=== PATIENT | male | born 1980 | race Caucasian/White ===

== ENCOUNTER 2023-06-05 21:53 | Inpatient (IN) | payer OTHER ==
[2023-06-05 22:47] VITALS: BMI 24.3
[2023-06-06] MEDS ORDERED: LOPERAMIDE HCL 2 MG CAPSULE PO PRN (03:06)
[2023-06-06] MEDS ORDERED: BISMUTH SUBSALICYLATE 524 MG/30 ML PO PRN (03:06)
[2023-06-06] MEDS ORDERED: MAGNESIUM HYDROX 2400MG/30ML ORAL SUSPENSION 30 ML CUP PO PRN (03:06)
[2023-06-06] MEDS ORDERED: POLYETHYLENE GLYCOL (HEALTHYLAX) 3350 17 GM PACKET PO PRN (03:06)
[2023-06-06] MEDS ORDERED: NALOXONE HCL (KLOXXADO) 8 MG SPRAY NS PRN (03:06)
[2023-06-06] MEDS ORDERED: hydrOXYzine PAMOATE 25 MG CAPSULE (FP) PO PRN (03:06)
[2023-06-06] MEDS ORDERED: MAG HYDROX/AL HYDROX/SIMETH 30 ML UNIT-DOSE CUP PO PRN (03:06)
[2023-06-06] MEDS ORDERED: BENZOCAINE/MENTHOL (CHLORASEPTIC ) LOZENGE MM PRN (03:06)
[2023-06-06] MEDS ORDERED: DICYCLOMINE HCL 10 MG CAPSULE PO PRN (03:06)
[2023-06-06] MEDS ORDERED: guaiFENesin 600 MG TABLET.ER (FP) PO PRN (03:06)
[2023-06-06] MEDS ORDERED: ACETAMINOPHEN 325 MG TABLET (FP) PO PRN (03:06)
[2023-06-06] MEDS ORDERED: IBUPROFEN 400 MG TABLET (FP) PO PRN (03:06)
[2023-06-06] MEDS ORDERED: BENZONATATE 200 MG CAPSULE PO PRN (03:06)
[2023-06-06] MEDS ORDERED: NALOXONE HCL 0.4 MG/ML VIAL IM PRN (03:06)
[2023-06-06] MEDS: diazePAM 5 MG TABLET PO SCH (05:55)
[2023-06-06] MEDS: PRENATAL VITAMINS W/ FOLIC ACID TABLET (FP) PO SCH (10:19)
[2023-06-06] MEDS: IBUPROFEN 600 MG TABLET (FP) PO PRN (10:24)
[2023-06-06] MEDS: METHOCARBAMOL 500 MG TABLET PO PRN (10:24)
[2023-06-06] MEDS: methaDONE HCL 10 MG TABLET PO ONE (12:01)
[2023-06-06] MEDS: NICOTINE POLACRILEX 4 MG GUM BUC PRN (17:33)
[2023-06-06] MEDS: MELATONIN 5 MG TABLETS PO SCH (22:43)
[2023-06-06] MEDS: THIAMINE 100 MG TABLET PO SCH (22:43)
[2023-06-07] MEDS: ONDANSETRON *ODT* 4 MG TABLET SL PRN (06:46)
[2023-06-07] MEDS: diazePAM 5 MG TABLET PO SCH (06:55)
[2023-06-07] MEDS: NICOTINE 21 MG/24 HOURS TOPICAL PATCH TD SCH (10:28)
[2023-06-07] MEDS ORDERED: methaDONE HCL 10 MG TABLET PO ONE (10:31)
[2023-06-07] MEDS: diazePAM 5 MG TABLET PO PRN (10:44)
[2023-06-07 11:48] LABS: HEMOGLOBIN 13.5 GM/dL (11.7-16.9); MCH 28.7 pg (25.7-33.7); MEAN CELL VOLUME 86.9 fl (80-96); MEAN PLT VOLUME 10.5 fl (7.5-11.1); PLATELET COUNT 202 10^3/uL (134-434); RBC 4.72 M/mm3 (4.00-5.60); WHITE BLOOD COUNT 5.8 K/mm3 (4.0-10.0)
[2023-06-08] MEDS: diazePAM 5 MG TABLET PO SCH (05:55)
[2023-06-08] MEDS ORDERED: methaDONE HCL 10 MG TABLET PO SCH (06:00)
[2023-06-09] MEDS: diazePAM 5 MG TABLET PO ONE (05:43)
[2023-06-09 09:09] VITALS: BP 103/70; PULSE 78; RESP 16; TEMP 98
== END 2023-06-09 13:16 | disposition home or self-care (01) | DRG 773 ==
LOC: YASAS 21:53 → Y6N 06-06 03:43
PROVIDERS: ADMIT Allergy & Immunology; ATTEND Allergy & Immunology
PROC: HZ2ZZZZ Detoxification Services for Substance Abuse Treatment (ICD-10-PCS; principal; 2023-06-06)
DX: F13.230 Sedative, hypnotic or anxiolytic dependence with withdrawal, uncomplicated (principal); F11.20 Opioid dependence, uncomplicated; F14.20 Cocaine dependence, uncomplicated; F15.20 Other stimulant dependence, uncomplicated; F12.20 Cannabis dependence, uncomplicated; F17.210 Nicotine dependence, cigarettes, uncomplicated; F25.9 Schizoaffective disorder, unspecified; F41.9 Anxiety disorder, unspecified; F32.9 Major depressive disorder, single episode, unspecified; Z59.00 Homelessness unspecified; Z88.8 Allergy status to other drugs, medicaments and biological substances
CPT/HCPCS: 36415; 85027; 86780; 93005; 93010; Q0162